=== PATIENT | female | born 1955 | race Caucasian/White ===

== ENCOUNTER 2018-10-11 10:55 | Emergency (ER) | payer OTHER ==
[~2018-10-11] VITALS: Ht 167.6 cm; Wt 106.8 kg
[2018-10-11 11:14] VITALS: BP 143/90; Ht 167.6 cm; Wt 106.8 kg
== END 2018-10-11 14:20 | disposition home or self-care (01) ==
LOC: D.ER 10:55
DX: R51 Headache (principal); I10 Essential (primary) hypertension